=== PATIENT | male | born 1950 | race Caucasian/White ===

== ENCOUNTER → 2025-01-12 | Day surgery (SDC) | payer BC, MEDICARE ==
[~2025-01-12] VITALS: Ht 182.9 cm; Wt 93.4 kg
[~2025-01-12] MED LIST: AMLO1TAB24 PO; ATOR1TAB21 PO; LIDOCAINE 2% 100 MG/5 ML SDV (FOR ANES.) As Ordered ONE; LOSA100T46 PO
[2025-01-12 09:32] VITALS: TEMP 97.6
[2025-01-12 09:51] VITALS: BP 146/84; O2SAT 98
== END | disposition home or self-care (01) ==
LOC: M OPP 07:41
PROVIDERS: ATTEND Surgery
DX: Z12.11 Encounter for screening for malignant neoplasm of colon (principal); K57.30 Diverticulosis of large intestine without perforation or abscess without bleeding; G47.30 Sleep apnea, unspecified; Z79.899 Other long term (current) drug therapy